=== PATIENT | female | born 1975 | race African-American/Black ===

== ENCOUNTER 2016-05-09 08:59 | Emergency (ER) | payer MEDICARE, MEDICAID ==
[~2016-05-09] VITALS: Ht 157.5 cm; Wt 63.0 kg
[~2016-05-09 08:59] MED LIST: CALC600T2 PO; HYDR200T PO; PRED10TA PO; PRED1TAB PO; TRAZ-129 PO
[2016-05-09 09:10] VITALS: BP 115/83
== END 2016-05-09 10:48 | disposition home or self-care (01) ==
LOC: ER 09:21
DX: J06.9 Acute upper respiratory infection, unspecified (principal); M79.7 Fibromyalgia; Z88.3 Allergy status to other anti-infective agents; Z88.2 Allergy status to sulfonamides; Z98.890 Other specified postprocedural states
CPT/HCPCS: 87070; 87430; 99284

== ENCOUNTER 2016-11-20 19:25 | Emergency (ER) | payer MEDICARE, MEDICAID ==
[~2016-11-20] VITALS: Ht 157.5 cm; Wt 65.0 kg
[2016-11-20 19:31] VITALS: BP 127/81
== END 2016-11-20 20:36 | disposition left against medical advice (07) ==
LOC: ER 19:25
DX: Z53.21 Procedure and treatment not carried out due to patient leaving prior to being seen by health care provider (principal)

== ENCOUNTER 2016-11-30 09:39 | Emergency (ER) | payer MEDICARE, MEDICAID ==
[~2016-11-30] VITALS: Ht 167.6 cm; Wt 66.0 kg
[2016-11-30] MEDS ORDERED: KETOROLAC 30MG/ML VIAL IV STA (11:54)
[2016-11-30] MEDS ORDERED: LIDOCAINE HCL/PF 1% 2ML VIAL ONE (12:26)
[2016-11-30 12:43] LABS: EOSINOPHILS % 0.9 % (0.0-5.0); HEMATOCRIT. 41.5 % (36.0-48.0); HEMOGLOBIN. 14.4 g/dL (12.0-16.0); LYMPHOCYTES % 23.6 % (20.0-50.0); MEAN CORPUSCULAR HEMOGLOBIN 31.4 pg (28.0-32.0); MEAN CORPUSCULAR VOLUME 90.6 fL (81.0-99.0); MEAN PLATELET VOLUME 8.5 fl (7.4-10.4); MONOCYTES % 11.9 % (2.0-8.0); NEUTROPHILS % 62.6 % (40.0-76.0); PLATELET 232 x1000/uL (130-400); RED BLOOD CELL COUNT 4.58 mill/uL (4.2-5.4); RED CELL DISTRIBUTION WIDTH 12.4 % (11.6-14.6)
[2016-11-30 12:50] LABS: CARBON DIOXIDE 27 mEq/L (21-32); CHLORIDE 104 mEq/L (98-107); D-DIMER 0.22 mg/L FEU (<0.50); PARTIAL THROMBOPLASTIN TIME 27.4 sec (23.4-31.0)
[2016-11-30 12:56] LABS: TROPONIN I < 0.02 ng/mL (0.00-0.04)
[2016-11-30] MEDS ORDERED: ONDANSETRON HCL 4MG/2ML VIAL IV ONE (15:00)
[2016-11-30] MEDS ORDERED: MORPHINE SULFATE 4 MG/ML CPJ (NOT FOR IM USE) IV ONE (15:00)
[2016-11-30] MEDS ORDERED: MORPHINE SULFATE 2 MG/ML CPJ (NOT FOR IM USE) IV NR (15:15)
[2016-11-30 15:36] VITALS: BP 110/59
[2016-11-30 16:13] LABS: BG BASE EXCESS -1.6 mmol/L (-2.0-2.0); BG CARBOXYHEMOGLOBIN 0.2 % (0.5-1.5); BG DEOXYHEMOGLOBIN 2.6 % (0.0-5.0); BG FRACTION INSPIRED OXYGEN 21; BG HCO3 ACT 22.6 mmol/L (22.0-26.0); BG METHEMOGLOBIN 0.2 % (0.0-1.5); BG OXYGEN SATURATION 97.4 % (92.0-98.5); BG PCO2 36.4 mmHg (35.0-45.0); BG PO2 98.3 mmHg (75.0-100.0); BG SAMPLE SITE RIGHT RADIAL; BG TOTAL HEMOGLOBIN 13.7 g/dL (12.0-18.0); BG VENT MODE ROOM AIR
[2016-11-30] MEDS ORDERED: IOHEXOL-350 100 ML BOTTLE ONE (17:40)
== END 2016-11-30 18:07 | disposition home or self-care (01) ==
LOC: ER 10:10
DX: M79.1 Myalgia (principal); M32.9 Systemic lupus erythematosus, unspecified; R06.02 Shortness of breath; R05 Cough; Z88.1 Allergy status to other antibiotic agents
CPT/HCPCS: 36415; 36600; 71010; 71275; 80053; 82375; 82805; 83605; 83880; 84484; 85025; 85379; 85610; 85651; 85730; 87040; 93005; 96374; 96375; 99285; J1885; J2270; J2405; J3490; Q9967

== ENCOUNTER 2017-04-07 08:42 | Emergency (ER) | payer MEDICARE, MEDICAID ==
[~2017-04-07] VITALS: Ht 165.1 cm; Wt 66.0 kg
[2017-04-07] MEDS ORDERED: SODIUM CHLORIDE 0.9% 1,000 ML IV ONE (09:07)
[2017-04-07 09:49] LABS: EOSINOPHILS % 1.3 % (0.0-5.0); HEMATOCRIT. 39.5 % (36.0-48.0); HEMOGLOBIN. 13.3 g/dL (12.0-16.0); LYMPHOCYTES % 22.3 % (20.0-50.0); MEAN CORPUSCULAR HEMOGLOBIN 30.7 pg (28.0-32.0); MEAN CORPUSCULAR VOLUME 91.3 fL (81.0-99.0); MEAN PLATELET VOLUME 9.8 fl (7.4-10.4); MONOCYTES % 10.8 % (2.0-8.0); NEUTROPHILS % 64.6 % (40.0-76.0); PLATELET 252 x1000/uL (130-400); RED BLOOD CELL COUNT 4.33 mill/uL (4.2-5.4); RED CELL DISTRIBUTION WIDTH 12.2 % (11.6-14.6)
[2017-04-07 09:56] LABS: D-DIMER 0.6 mg/L FEU (<0.50)
[2017-04-07 09:58] LABS: CHLORIDE 105 mEq/L (98-107)
[2017-04-07 10:05] LABS: TROPONIN I < 0.02 ng/mL (0.00-0.04)
[2017-04-07 11:22] LABS: CLARITY URINE CLEAR (CLEAR); COLOR URINE YELLOW (YELLOW); KETONES URINE NEGATIVE (NEGATIVE); LEUKOCYTE ESTERASE URINE NEGATIVE (NEGATIVE); NITRITE URINE NEGATIVE (NEGATIVE); OCCULT BLOOD URINE NEGATIVE (NEGATIVE); PROTEIN URINE NEGATIVE (NEGATIVE); SPECIFIC GRAVITY URINE 1.013 (1.005-1.030); UROBILINOGEN URINE 0.2 E.U./dL (0.2-1.0)
[2017-04-07] MEDS ORDERED: IOHEXOL-350 100 ML BOTTLE ONE (14:15)
[2017-04-07 14:16] VITALS: BP 132/71
== END 2017-04-07 14:40 | disposition home or self-care (01) ==
LOC: ER 08:53
DX: B34.9 Viral infection, unspecified (principal); M32.9 Systemic lupus erythematosus, unspecified; Z88.2 Allergy status to sulfonamides; Z98.890 Other specified postprocedural states; Z88.1 Allergy status to other antibiotic agents
CPT/HCPCS: 36415; 71045; 71275; 80053; 81003; 83605; 83880; 84484; 85025; 85379; 85610; 87040; 87086; 93005; 96360; 96361; 99285; J7030; J7040; Q9967

== ENCOUNTER 2018-02-14 09:03 | Emergency (ER) | payer MEDICAID, MEDICARE ==
[~2018-02-14] VITALS: Ht 157.5 cm; Wt 73.0 kg
[~2018-02-14 09:03] MED LIST changes: -HYDR200T PO; +HYDR200T80 PO; -TRAZ-129 PO; +TRAZ-212 PO
[2018-02-14] MEDS ORDERED: TETRACAINE 0.5% OPHTH DROPS 4ML BOTHEYE ONE (10:00)
[2018-02-14] MEDS ORDERED: FLUORESCEIN SODIUM 1MG/STRIP OP ONE (10:00)
[2018-02-14] MEDS ORDERED: ACETAMINOPHEN WITH CODEINE 300/30MG TABLET PO ONE (10:00)
[2018-02-14 11:36] VITALS: BP 103/68
== END 2018-02-14 11:40 | disposition home or self-care (01) ==
LOC: ER 09:03
DX: G89.29 Other chronic pain (principal); M54.30 Sciatica, unspecified side; M32.9 Systemic lupus erythematosus, unspecified; R05 Cough; H10.9 Unspecified conjunctivitis; M79.7 Fibromyalgia; Z88.2 Allergy status to sulfonamides; Z88.3 Allergy status to other anti-infective agents
CPT/HCPCS: 71045; 81025; 99284